=== PATIENT | male | born 1955 | race Caucasian/White ===

== ENCOUNTER → 2024-02-02 10:33 | Outpatient (REF) | payer MEDICARE, SELFPAY | LOC: HWRAD 10:33 | PROVIDERS: ATTENDING PHYSICIAN Family Medicine | DX: R59.0 Localized enlarged lymph nodes (principal) | CPT/HCPCS: 71046 ==

== ENCOUNTER → 2024-02-22 09:20 | Outpatient (REF) | payer MEDICARE, SELFPAY | LOC: RSP 09:20 | PROVIDERS: ATTENDING PHYSICIAN Family Medicine | DX: R06.02 Shortness of breath (principal) | CPT/HCPCS: 94727; 94729; 88738; 94060 ==

== ENCOUNTER → 2024-05-05 13:40 | Outpatient (REF) | payer MEDICARE, OTHER, SELFPAY | LOC: HWRAD 13:40 | PROVIDERS: ATTENDING PHYSICIAN Internal Medicine Critical Care Medicine | DX: R91.1 Solitary pulmonary nodule (principal) | CPT/HCPCS: 71250 ==

== ENCOUNTER → 2024-06-19 06:21 | Outpatient (REF) | payer MEDICARE, OTHER, SELFPAY ==
[2024-06-19 08:47] LABS: Hematocrit 45.4 % (39.0-52.0); Hemoglobin 15.2 g/dL (13.0-18.0); Mean Corp Hgb Conc. 33.5 g/dL (33.0-37.0); Mean Corpuscular Hgb 31.9 pg (27.0-31.0); Mean Corpuscular Volume 95.2 fL (80.0-94.0); Mean Platelet Volume 12.3 fL (7.4-10.4); Platelet Count 206 10^3/uL (130-400); Red Blood Cell Count 4.77 10^6/uL (4.70-6.10); Red Cell Dist. Width 13.2 % (11.5-14.5); White Blood Cell Count 6.1 10^3/uL (4.8-10.8)
[2024-06-19 09:01] LABS: Urine Albumin Negative (Neg - Trace); Urine Bilirubin Negative (Negative); Urine Character Clear (Clear); Urine Color Yellow; Urine Glucose Negative (Negative); Urine Ketone Negative (Negative); Urine Leukocyte Negative (Negative); Urine Nitrite Negative (Negative); Urine Occult Blood 1+ (Negative); Urine Specific Gravity 1.025 (<1.030); Urine Urobilinogen Negative (Neg - 1+)
[2024-06-19 09:17] LABS: Blood Urea Nitrogen 18 mg/dl (9-20); Calcium 9.1 mg/dl (8.4-10.2); Carbon Dioxide 27 mmol/L (22-30); Chloride 102 mmol/L (98-107); Glucose 145 mg/dl (70-99); Potassium 4.6 mmol/L (3.5-5.1); Sodium 141 mmol/L (135-145); eGFR > 60.00
[2024-06-19 10:12] LABS: Urine Mucus Few
[2024-06-19 10:24] LABS: Urine Red Blood Cell 0-2 /HPF (0-2); Urine Uric Acid Crystals Seen; Urine White Cell 0-2 /HPF (0-5)
== END ==
LOC: SDSPAT 06:21
PROVIDERS: ATTENDING PHYSICIAN Specialist; FAMILY PHYSICIAN Family Medicine
DX: Z01.818 Encounter for other preprocedural examination (principal)
CPT/HCPCS: 36415; 80048; 81003; 81015; 85027; 93005

== ENCOUNTER 2024-06-27 06:37 | Day surgery (SDC) | payer MEDICARE, OTHER, SELFPAY ==
[2024-06-19 10:12] VITALS: BMI 32.9
[2024-06-27 10:40] VITALS: BMI 32.9
[2024-06-27 10:47] VITALS: BP 133/70
[2024-06-27 10:49] VITALS: BMI 32.9
[2024-06-27 10:53] LABS: Glucose - Point of Care 122 mg/dl (70-99)
[2024-06-27 11:40] LABS: Urine Albumin Negative (Neg - Trace); Urine Bilirubin Negative (Negative); Urine Character Clear (Clear); Urine Color Yellow; Urine Glucose Negative (Negative); Urine Ketone Negative (Negative); Urine Leukocyte Negative (Negative); Urine Nitrite Negative (Negative); Urine Occult Blood 1+ (Negative); Urine Urobilinogen Negative (Neg - 1+)
[2024-06-27 11:43] LABS: Urine Squamous Cell 0-2 /LPF (Few); Urine White Cell 0-2 /HPF (0-5)
[2024-06-27 13:02] VITALS: BP 125/72; BP 133/70
[2024-06-27 13:05] LABS: Glucose - Point of Care 119 mg/dl (70-99)
[2024-06-27 13:15] VITALS: BP 140/84
[2024-06-27] MEDS: Pyridium 200 MG PO (13:26)
[2024-06-27 13:30] VITALS: BP 138/86
[2024-06-27 13:45] VITALS: BP 132/77
[2024-06-27 14:15] VITALS: BP 137/77
[2024-06-30 12:42] LABS: Stone Analysis Mass 273 mg
== END 2024-06-27 14:35 | disposition home or self-care (01) ==
LOC: SDS 06:37
PROVIDERS: ATTENDING PHYSICIAN Specialist
DX: N21.0 Calculus in bladder (principal); N40.0 Benign prostatic hyperplasia without lower urinary tract symptoms
CPT/HCPCS: 52318; 81003; 81015; 82365; 82962; 87086

== ENCOUNTER → 2024-09-08 10:28 | Outpatient (REF) | payer MEDICARE, OTHER, SELFPAY | LOC: HWRAD 10:28 | PROVIDERS: ATTENDING PHYSICIAN Physician Assistant Medical | DX: R05.1 Acute cough (principal) | CPT/HCPCS: 71046 ==

== ENCOUNTER → 2024-11-13 15:44 | Outpatient (REF) | payer MEDICARE, OTHER, SELFPAY | LOC: HWRAD 15:44 | PROVIDERS: ATTENDING PHYSICIAN Physician Assistant Medical | DX: R05.3 Chronic cough (principal) | CPT/HCPCS: 71046 ==

== ENCOUNTER → 2025-05-04 08:32 | Outpatient (REF) | payer MEDICARE, OTHER, SELFPAY | LOC: HWRAD 08:32 | PROVIDERS: ATTENDING PHYSICIAN Internal Medicine Critical Care Medicine; FAMILY PHYSICIAN Family Medicine | DX: R91.1 Solitary pulmonary nodule (principal) | CPT/HCPCS: 71250 ==